=== PATIENT | female | born 1985 | race Caucasian/White ===

== ENCOUNTER 2019-05-06 11:53 | Emergency (ER) | payer OTHER, SELFPAY ==
[2019-05-06 12:22] VITALS: BP 142/91; PULSE 104; RESP 20; TEMP 36.8; O2SAT 100
--- NOTE | 2019-05-06 12:22 | ED.URI ---
HPI - URI/Sore Throat General Chief Complaint: Upper Respiratory Infection Stated Complaint: Cold/Flu symptoms Time Seen by Provider: 05/06/19 12:26 Source: patient and RN notes reviewed Mode of arrival: ambulatory Limitations: no limitations History of Present Illness HPI Narrative: 33 old female presents with 3-day history of body aches, chills, fever, cough, rhinorrhea, chest congestion. Reports her sister has influenza. MD elicited complaint: cough Related Data Home Medications Medication Instructions Recorded Confirmed No Home Medications 05/06/19 05/06/19 Allergies Allergy/AdvReac Type Severity Reaction Status Date / Time Penicillins Allergy Mild Hives / Verified 05/06/19 12:29 Red Face Review of Systems Review of Systems: Narrative: CONSTITUTIONAL: Reports malaise, chills, sweats, or fever. EYES: Denies visual changes, redness, or discharge. ENT: Reports rhinorrhea, congestion,. Denies sinus pain, otalgia and sore throat. CARDIOVASCULAR: Denies chest pain, palpitations, or edema. RESPIRATORY: Reports cough, chest congestion. Denies dyspnea. GASTROINTESTINAL: Denies abdominal pain, nausea, vomiting, diarrhea SKIN: Denies rash or itching. MUSCULOSKELETAL: Reports myalgia. NEUROLOGIC: Denies headache. All systems reviewed & are unremarkable except as noted in HPI and below PMFSH Comments At time of signature, agree with nursing past medical, surgical, social and family history. There is no relevant family history pertinent to the presenting complaint Exam Narrative: Exam Narrative: GENERAL: Well-appearing, well-nourished, and in no acute distress. HEAD: Normocephalic EYES: PERRLA, conjunctivae clear ENT: Nares clear, turbinates erythematous, clear discharge. Mucous membranes moist. TM pearly petersen with dull light reflex bilaterally; no tragal tenderness. Oropharynx not erythematous without lesions. Tonsils not enlarged and without exudate, no drooling, no hoarseness, no trismus, uvula midline. NECK: Supple. No lymphadenopathy CHEST: Clear to auscultation, breath sounds equal. No wheezing, rhonchi, rales, or stridor. No respiratory distress, speaks in full sentences. Cough noted HEART: Regular rate and rhythm. No murmur heard. SKIN: Warm, dry, no rash. NEURO: Alert and oriented x3. PSYCH: Normal mood and affect Course Course Emergency Course: Patient is aware of diagnosis, understands and agrees to treatment plan. Anticipatory guidance given. Patient agrees to follow-up as directed and is aware of reasons to seek care at the emergency department. Portions of this record may have been created with voice recognition software Vital Signs Vital signs: Reviewed. MDM - URI/Sore Throat MDM Narrative Medical decision making narrative: Differential diagnosis considered: Strep pharyngitis, allergic rhinitis, upper respiratory tract infection, sinusitis, rhinosinusitis, nasopharyngitis. viral pharyngitis, otitis media, otitis externa, pneumonia, bronchitis, viral cough syndrome, viral syndrome, and influenza. Exam findings show no acute concerns or changes; patient is non-toxic appearing and is in no distress. Patient is appropriate for outpatient treatment and follow-up. Lab Data Attestation: I reviewed the patient's lab results. Critical Care Time Critical Care Time Critical Care Time: No Discharge Plan Discharge Clinical Impression: Influenza B Patient Disposition: Home, Self-Care Condition: Stable Instructions: Influenza (ED) Additional Instructions: -Your symptoms are caused by a virus, and antibiotic does not cure viral illness. -Take strict precautions to prevent the spread of your virus. Be diligent about covering your cough (even when you are alone) and washing your hands frequently. -Alternate Tylenol and Motrin for pain and fever relief (per package directions) -Some Cough medicines may make you drowsy, do not take it if you have to make important decisions, drive, or work. -Drink ple
== END 2019-05-06 12:42 | disposition home or self-care (01) ==
PROVIDERS: Emergency Provider Nurse Practitioner
DX: J10.1 Influenza due to other identified influenza virus with other respiratory manifestations (principal)
CPT/HCPCS: 87804; 99203; G0463

== ENCOUNTER 2019-12-18 17:07 | Emergency (ER) | payer OTHER, SELFPAY ==
[2019-12-18 17:17] VITALS: BP 139/103; PULSE 112; RESP 14; TEMP 36.8; O2SAT 100
--- NOTE | 2019-12-18 18:30 | ED.FEMALEGU ---
HPI - Female Genitourinary General Chief complaint: Urogenital-Female Stated complaint: UTI Time Seen by Provider: 12/18/19 17:42 Source: patient and RN notes reviewed Mode of arrival: ambulatory Limitations: no limitations History of Present Illness HPI Narrative: 34 year old female who presents to [facility] care with complaints of irritation to perineal area with bulging to area near urethra. Patient states that she just got over vaginal infection and she then developed yeast infection. Patient states that she has pressure and discomfort when she urinates for the past 2-3 days. Patient denies any CVA tenderness or any acute suprapubic or pelvic discomfort. Patient states that she has been using Monistat ointment for perineal area for itching irritation..Patient states that she has sore area left vaginal region that she thinks she may of scratched. MD elicited complaint: dysuria, vaginal discharge and other (irritation to perineal area near urethra) Pertinent past history: recurrent UTIs and other (Vaginal infections and yeast infections) Onset (ago): day(s) Location of symptoms: external genitalia, perineum and urethra Severity: moderate Severity scale (1-10): 3 Quality of pain: burning and aching Consistency: constant Vaginal discharge: none, white and other (itchy) Vaginal bleeding: none Urinary symptoms: Dysuria and Frequency Exacerbating factors: urination Relieving factors: medication Associated symptoms: denies other symptoms Treatment prior to arrival: OTC vaginal cream Sexual activity: Yes Patient : No Date of Last Menstrual Period: 11/22/19 Related Data Home Medications Medication Instructions Recorded Confirmed dextroamphetamine-amphetamine 10 mg PO DAILY 12/18/19 12/18/19 Allergies Allergy/AdvReac Type Severity Reaction Status Date / Time Penicillins Allergy Mild Hives / Verified 12/19/19 16:15 Red Face Review of Systems Review of Systems: Narrative: CONSTITUTIONAL: Denies fever, chills, or sweats. EYES: Denies visual changes, redness, or discharge. ENT: Denies rhinorrhea, congestion, sore throat, or otalgia. CARDIOVASCULAR: Denies chest pain, palpitations, or edema. RESPIRATORY: Denies cough or dyspnea. GASTROINTESTINAL: Denies abdominal pain, nausea, vomiting, or diarrhea. GENITOURINARY:Positive for dysuria no visible hematuria.report bulging area in left vaginal area near urethra, yeast infection symptoms SKIN: Denies rash or itching. MUSCULOSKELETAL: Denies back pain, joint pain, or myalgia. NEUROLOGIC: Denies headache, numbness, or weakness. PSYCHIATRIC: Denies anxiety or depression.ADHD All systems reviewed & are unremarkable except as noted in HPI and below PMFSH Past Medical History Medical History (Updated 12/19/19 @ 20:14 by Julianna Lagunas NP) ADHD History of vaginal infection UTI (urinary tract infection) Vaginal yeast infection Surgical History Surgical History (Updated 12/19/19 @ 20:01 by Julianna Lagunas NP) No pertinent past surgical history Family History Family History Father Hypertension Asthma Diabetes mellitus Depression Grandparent Asthma Diabetes mellitus Hypertension Carcinoma of colon Bladder cancer Heart failure Brain cancer Lung cancer Sibling Asthma Social History Social History Smoking packs per day: 0.25 Smoking cigarettes per day: 5.0 Years smoked: 7 Smoking pack-years: 1.75 Smoking status: Current every day smoker Alcohol intake: current Drinks per week: 10 Substance use: never Gender identity (if verbalized by the patient): Female Comments At time of signature, agree with nursing past medical, surgical, social and family history. There is no relevant family history pertinent to the presenting complaint Exam Narrative: Exam Narrative: GENERAL: Well-appearing, well-nourished, and in no a
[2019-12-18 18:43] VITALS: BP 146/98
== END 2019-12-18 18:45 | disposition home or self-care (01) ==
PROVIDERS: Emergency Provider Registered Nurse; PCP Family Medicine
DX: N90.89 Other specified noninflammatory disorders of vulva and perineum (principal); N39.0 Urinary tract infection, site not specified; F17.210 Nicotine dependence, cigarettes, uncomplicated; F90.9 Attention-deficit hyperactivity disorder, unspecified type
CPT/HCPCS: 81003; 87077; 87086; 87088; 99213; G0463

== ENCOUNTER 2019-12-19 16:03 | Emergency (ER) | payer OTHER, SELFPAY ==
[2019-12-19 16:06] VITALS: BP 149/100; PULSE 117; RESP 100; TEMP 36.6; O2SAT 100
--- NOTE | 2019-12-19 16:42 | ED.GENADULT ---
HPI - General Adult General Chief complaint: Wound/Laceration Stated complaint: LESION Time Seen by Provider: 12/19/19 16:08 Source: patient Mode of arrival: ambulatory Limitations: no limitations History of Present Illness HPI narrative: Patient a 34-year-old female who presents to emergency department for evaluation of wound in the vagina that has been present for the last couple of days was seen yesterday diagnosed with urinary tract infection and yeast infection placed on ciprofloxacin notes that the wound is still present patient is unsure as to maybe she may have caused the wound with itching or scratching. Patient has not followed up with gynecology but presents per request of gynecology for further evaluation of the wound Related Data Home Medications Medication Instructions Recorded Confirmed dextroamphetamine-amphetamine 10 mg PO DAILY 12/18/19 12/18/19 Allergies Allergy/AdvReac Type Severity Reaction Status Date / Time Penicillins Allergy Mild Hives / Verified 12/19/19 16:15 Red Face Review of Systems Review of Systems: All systems reviewed & are unremarkable except as noted in HPI and below PMFSH Family History Family History Father Hypertension Asthma Diabetes mellitus Depression Grandparent Asthma Diabetes mellitus Hypertension Carcinoma of colon Bladder cancer Heart failure Brain cancer Lung cancer Sibling Asthma Social History Social History Smoking packs per day: 0.25 Smoking cigarettes per day: 5.0 Years smoked: 7 Smoking pack-years: 1.75 Smoking status: Current every day smoker Alcohol intake: current Drinks per week: 10 Substance use: never Gender identity (if verbalized by the patient): Female Exam Narrative: Exam Narrative: GENERAL: Well-appearing, well-nourished, and in no acute distress. HEAD: Normocephalic, atraumatic. EYES: PERRLA and EOMI. ENT: Nares clear, no rhinorrhea or epistaxis. Mucous membranes moist. FEMALE GENITOURINARY: Patient with laceration of the mucosa of the vagina to the left of the clitoris that is superficial no erythema measures 1-1/2 cm in length by less than 1/2 cm in width no fluctuance or purulence EXTREMITIES: Normal range of motion. No edema. SKIN: Warm, dry, no rash. NEURO: No focal deficits. Alert and oriented x3. PSYCH: Normal mood and affect. Course Course Emergency Course: Patient with labial fissure will be sent back to gynecology for further evaluation will be switched to Keflex for better coverage of skin and urinary tract infection provided with reasons to return Vital Signs Vital signs: Vital Signs Temperature 97.9 F 12/19/19 16:06 Pulse Rate 117 H 12/19/19 16:06 Respiratory Rate 100 H 12/19/19 16:06 Blood Pressure 149/100 H 12/19/19 16:06 Pulse Oximetry 100 12/19/19 16:06 Temperature 97.9 F 12/19/19 16:06 Pulse Rate 117 H 12/19/19 16:06 Respiratory Rate 100 H 12/19/19 16:06 Blood Pressure 149/100 H 12/19/19 16:06 Pulse Oximetry 100 12/19/19 16:06 Medical Decision Making MDM Narrative Medical decision making narrative: Patient with labial wound felt appropriate for outpatient reevaluation by her nurse midwife Vital Signs Vital Signs: Vital Signs Temperature 97.9 F 12/19/19 16:06 Pulse Rate 117 H 12/19/19 16:06 Respiratory Rate 100 H 12/19/19 16:06 Blood Pressure 149/100 H 12/19/19 16:06 Pulse Oximetry 100 12/19/19 16:06 Temperature 97.9 F 12/19/19 16:06 Pulse Rate 117 H 12/19/19 16:06 Respiratory Rate 100 H 12/19/19 16:06 Blood Pressure 149/100 H 12/19/19 16:06 Pulse Oximetry 100 12/19/19 16:06 Discharge Plan Discharge Clinical Impression: Fissure of genital labia Patient Disposition: Home, Self-Care Condition: Stable Instructions: Antibiotic Form, Acute Wounds (ED) Additional Instructions: Foll
== END 2019-12-19 17:21 | disposition home or self-care (01) ==
PROVIDERS: Emergency Provider Emergency Medicine; PCP Family Medicine
DX: N90.89 Other specified noninflammatory disorders of vulva and perineum (principal); N39.0 Urinary tract infection, site not specified; F17.210 Nicotine dependence, cigarettes, uncomplicated; B37.9 Candidiasis, unspecified
CPT/HCPCS: 99283

== ENCOUNTER 2021-07-19 19:39 | Emergency (ER) | payer BC, SELFPAY ==
--- NOTE | ~2021-07-19 | XR_ITS ---
EXAM: XR finger 2nd LT min 2V DATE: 07/19/2021 20:37 HISTORY: swelling to LEFT 2nd finger. no injury . COMPARISON: None available. FINDINGS: Normal mineralization. No fracture or dislocation. No lytic or blastic lesion. Joint space s and physes are maintained. No erosion or periosteal change. Soft tissues within normal limits. IMPRESSION: No acute osseous abnormality detected in the left second finger. Reviewed, dictated and finalized at location K.
--- NOTE | ~2021-07-19 | XR_ITS ---
EXAM: XR toe 3rd LT min 2V DATE: 07/19/2021 20:38 HISTORY: LT 3RD TOE SWELLING AND NUMBNESS NO INJURY . COMPARISON: None available. FINDINGS: Normal mineralization. No fracture or dislocation. No lytic or blastic lesion. Joint space s are maintained. No erosion or periosteal change. Soft tissues within normal limits. IMPRESSION: No acute osseous abnormality detected in the left third toe. Reviewed, dictated and finalized at location K.
--- NOTE | 2021-07-19 19:48 | ED.EXTPRO ---
HPI - Extremity Problem General Stated complaint: left side finger and toe swollen Time Seen by Provider: 07/19/21 20:15 Source: patient and RN notes reviewed Mode of arrival: ambulatory Limitations: no limitations History of Present Illness HPI Narrative: 35-year-old female presents with concern for swelling and tenderness to the second digit of the left hand and swelling to the third digit of the left foot. She reports symptoms started 3 weeks ago. She reports symptoms started the same time, she denies any injury to either digit. She reports she has been using ice and ibuprofen without relief. She denies general malaise, fever, bodies, chills, sweats. MD Complaint: extremity swelling Related Data Home Medications Medication Instructions Recorded Confirmed dextroamphetamine-amphetamine 10 See Rx Instructions .Route .COMPLEX 07/19/21 07/19/21 mg tablet valacyclovir 500 mg tablet 1 tablet PO DAILY 07/19/21 07/19/21 Allergies Allergy/AdvReac Type Severity Reaction Status Date / Time Penicillins Allergy Mild Hives / Verified 07/19/21 20:08 Red Face Review of Systems Review of Systems: CONSTITUTIONAL: Denies malaise, chills, sweats, or fever. CARDIOVASCULAR: Denies chest pain, palpitations, or edema. RESPIRATORY: Denies cough or dyspnea. SKIN: Denies rash or itching, bruising, redness MUSCULOSKELETAL: Reports swelling, tenderness to the second edge of left hand and third digit of left foot NEUROLOGIC: Denies numbness, weakness All systems reviewed & are unremarkable except as noted in HPI and below PMFSH Past Medical History Medical History (Updated 07/19/21 @ 20:41 by Olivia Buenrostro NP) ADHD History of vaginal infection UTI (urinary tract infection) Vaginal yeast infection Surgical History Surgical History (Updated 12/19/19 @ 20:01 by Julianna Lagunas NP) No pertinent past surgical history Family History Family History Father Hypertension Asthma Diabetes mellitus Depression Grandparent Asthma Diabetes mellitus Hypertension Carcinoma of colon Bladder cancer Heart failure Brain cancer Lung cancer Sibling Asthma Social History Social History Smoking packs per day: 0.25 Smoking cigarettes per day: 5.0 Years smoked: 7 Smoking pack-years: 1.75 Smoking status: Current every day smoker Alcohol intake: current Drinks per week: 10 Substance use: never Gender identity (if verbalized by the patient): Female Comments At time of signature, agree with nursing past medical, surgical, social and family history. There is no relevant family history pertinent to the presenting complaint Exam Narrative: GENERAL: Well-appearing, well-nourished, and in no acute distress. HEAD: Normocephalic, atraumatic. EYES: PERRLA, sclera clear, and EOMI. ENT: Nares clear. Mucous membranes moist. NECK: Supple. CHEST: No respiratory distress. Speaks in full sentences. HEART: Regular rate and rhythm.Normal peripheral pulses. Bilateral feet with good dark in color when dependent, when feet are elevated circulation improves, skin is pink in color. Capillary refill is 3 seconds or less in both dependent and raised positions EXTREMITIES: Left upper and lower extremities have grossly normal range of motion, grossly normal strength and sensation. Third digit of left foot is edematous, slightly tender without erythema, induration, warmth. Second digit of left hand is very mildly edematous at the MIP joint with very mild but no induration, erythema, warmth SKIN: Warm, dry, no visible rash. No lacerations or abrasions noted NEURO: Alert and oriented x3. PSYCH: Normal mood and affect Course Course Emergency Course: Discussed possible chronic causes of patient's symptoms, advised that she follow-up with primary care provider for comprehensive evaluation. Patient is aware of diagn
[2021-07-19 19:54] VITALS: BP 136/94; PULSE 96; RESP 18; TEMP 37.1; O2SAT 100
== END 2021-07-19 20:50 | disposition home or self-care (01) ==
PROVIDERS: Emergency Provider Nurse Practitioner
DX: M25.842 Other specified joint disorders, left hand (principal); M25.872 Other specified joint disorders, left ankle and foot; F17.210 Nicotine dependence, cigarettes, uncomplicated; F90.9 Attention-deficit hyperactivity disorder, unspecified type
CPT/HCPCS: 73140; 73660; 99214; G0463

== ENCOUNTER 2021-08-03 08:04 | Outpatient (CLI) | payer BC, SELFPAY ==
[2021-08-03 19:41] LABS: Cholesterol 160 mg/dL (0-200); HDL Direct 65 mg/dL; Triglycerides 59 mg/dL (<150)
[2021-08-03 19:53] LABS: LDL Cholesterol Direct 75 mg/dL
[2021-08-03 20:32] LABS: Hemoglobin A1C 5.1 % (<5.7)
[2021-08-07 12:32] LABS: ANA Cascade Screen Negative (Negative)
== END 2021-08-03 08:05 | disposition home or self-care (01) ==
PROVIDERS: PCP Family Medicine; Visit Provider Family Medicine
DX: G47.10 Hypersomnia, unspecified (principal); M25.40 Effusion, unspecified joint; Z00.00 Encounter for general adult medical examination without abnormal findings; E66.9 Obesity, unspecified
CPT/HCPCS: 36415; 80061; 83036; 84443; 86038

== ENCOUNTER 2021-10-17 09:28 | Outpatient (CLI) | payer BC, SELFPAY ==
--- NOTE | ~2021-10-17 | MR_ITS ---
EXAMINATION: MR hand LT wo con DATE: 10/17/2021 10:10 INDICATION: Pain and swelling at the left second digit TECHNIQUE: Magnetic resonance imaging (MRI) of the left hand was performed without intravenous contra st. Sequences included axial, sagittal and coronal T1-weighted FSE and T2-weighted FS FSE and sagitta l and coronal fluid sensitive FSE STIR. COMPARISON: Left second finger radiographs dated 07/19/2021 FINDINGS: Bone alignment is normal. Normal marrow signal throughout with no fracture or pathologic marrow repla cing process. Joint spaces appear relatively preserved. No erosions. Nonspecific small joint effusion at the second proximal interphalangeal joint. More prominent synovitis extending throughout the flex or tendon sheath of the second digit beginning proximally at the level of the neck of the second meta tarsal and extending distally to the level of the neck of the middle phalanx. The flexor and extensor tendons are normal. The flexor lakshmi system remains normal. Collateral ligament complex at the meta carpophalangeal and interphalangeal joints are normal. IMPRESSION: 1. Extensive tenosynovitis along the flexor tendon sheath to the left second digit. No tendinopathy o r tendon tear. Reviewed, dictated and finalized at location A. IMPRESSION: 1. Extensive tenosynovitis along the flexor tendon sheath to the left second di git. No tendinopathy or tendon tear.
== END 2021-10-17 09:29 ==
PROVIDERS: PCP Family Medicine; Visit Provider Family Medicine
DX: M79.645 Pain in left finger(s) (principal); M79.89 Other specified soft tissue disorders
CPT/HCPCS: 73218

== ENCOUNTER 2022-05-24 08:17 | Outpatient (CLI) | payer BC, SELFPAY ==
--- NOTE | ~2022-05-24 | XR_ITS ---
Right Hand Technique: PA, oblique, and lateral views were obtained. Clinical History: Pain Findings: No acute fracture or dislocation is seen. Osseous alignment is anatomic. Joint spaces are p reserved. Soft tissues are unremarkable. Impression: Unremarkable right hand. Reviewed, dictated and finalized at location M. Impression: Unremarkable right hand.
== END 2022-05-24 08:18 | disposition home or self-care (01) ==
LOC: ANHBWCIMG 08:18
PROVIDERS: PCP Family Medicine; Visit Provider Family Medicine
DX: M25.40 Effusion, unspecified joint (principal)
CPT/HCPCS: 73130

== ENCOUNTER 2022-06-27 11:44 | Outpatient (CLI) | payer BC, SELFPAY ==
[2022-06-27 19:29] LABS: Basophils Percent Auto 0.5 % (0.2-1.2); Eosinophils Percent Auto 0.5 % (0-4.4); Hematocrit 44.1 % (37.0-47.0); Hemoglobin 14.7 g/dL (12.0-15.0); Immature Granulocyte Absolute 0.03 K/mm3 (0.00-0.031); Immature Granulocyte Percent A 0.5 % (0-0.5); Lymphocytes Absolute Auto 1.29 K/mm3 (0.9-3.2); Lymphocytes Percent Auto 19.7 % (18.3-44.2); Mean Corpuscular HGB Conc 33.3 g/dl (32-36); Mean Corpuscular Hemoglobin 31.6 pg (26-34); Mean Corpuscular Volume 94.8 fl (80-100); Mean Platelet Volume 11.6 fl (7.4-10.4); Monocytes Absolute Auto 0.4 K/mm3 (0.1-0.6); Monocytes Percent Auto 6.3 % (2.6-8.5); Neutrophils Absolute Auto 4.8 K/mm3 (1.3-6.7); Neutrophils Percent Auto 72.5 % (45.5-73.1); Platelet Count Result 223 k/mm3 (150-375); Red Blood Count 4.65 M/mm3 (4.2-5.4); Red Cell Distribution Width 13.3 % (11.5-14.5); White Blood Count 6.6 K/mm3 (4.5-10.0)
[2022-06-27 19:33] LABS: CRP < 0.5 mg/dL (<1.0)
[2022-06-27 19:41] LABS: Rheumatoid Factor < 12.0 IU/ML (<12)
[2022-06-27 20:38] LABS: Erythrocyte Sedimentation Rate 11 mm/hr (0-20)
== END 2022-06-27 11:45 | disposition home or self-care (01) ==
LOC: ANHBWCLAB 11:45
PROVIDERS: PCP Family Medicine; Visit Provider Nurse Practitioner
DX: M25.40 Effusion, unspecified joint (principal); M79.645 Pain in left finger(s)
CPT/HCPCS: 36415; 85025; 85652; 86140; 86430

== ENCOUNTER 2022-12-14 09:25 | Outpatient (CLI) | payer BC, SELFPAY ==
[2022-12-14 19:01] LABS: Iron 98 ug/dL (37-170)
[2022-12-14 19:10] LABS: Hematocrit 46.8 % (37.0-47.0); Hemoglobin 14.9 g/dL (12.0-15.0); Mean Corpuscular HGB Conc 31.8 g/dl (32-36); Mean Corpuscular Hemoglobin 30.8 pg (26-34); Mean Corpuscular Volume 96.9 fl (80-100); Mean Platelet Volume 11.8 fl (7.4-10.4); Platelet Count Result 229 k/mm3 (150-375); Red Blood Count 4.83 M/mm3 (4.2-5.4); Red Cell Distribution Width 13.2 % (11.5-14.5); White Blood Count 8.4 K/mm3 (4.5-10.0)
[2022-12-14 19:17] LABS: Percent Iron Saturation 31 % (20-50)
[2022-12-14 19:34] LABS: Alanine Aminotransferase 15 U/L (6-35); Albumin Level 4.5 g/dL (3.5-5.1); Alkaline Phosphatase 53 U/L (38-126); Anion Gap 6 mmol/L (8-16); Aspartate Amino Transferase 65 U/L (14-36); Bilirubin,Total 0.5 mg/dL (0.2-1.3); Blood Urea Nitrogen 12 mg/dL (7-17); Calcium 9.5 mg/dL (8.4-10.2); Carbon Dioxide 28 mmol/L (22-30); Chloride 103 mmol/L (98-107); Estimated Glomerular Filt Rate > 60; Glucose 72 mg/dL (65-110); Potassium 3.7 mmol/L (3.4-5.0); Sodium 137 mmol/L (137-145)
[2022-12-14 20:41] LABS: Folic Acid 12.5 ng/mL (2.76->20)
== END 2022-12-14 09:26 | disposition home or self-care (01) ==
PROVIDERS: PCP Nurse Practitioner Adult Health; Visit Provider Nurse Practitioner Adult Health
DX: R53.83 Other fatigue (principal)
CPT/HCPCS: 36415; 80053; 82607; 82728; 82746; 83540; 83550; 84443; 85027

== ENCOUNTER 2022-12-20 14:19 | Outpatient (CLI) | payer BC, SELFPAY ==
--- NOTE | 2022-12-25 15:52 | WPDHOLTEREM ---
Holter/Event Monitor Holter/Event Monitor Date of procedure: 12/20/22 Holter/Event Procedure: 48 Hr Holter Monitor Indications: Palpitations Conclusion: 1. 48 hour holter monitor on 12/20/22. 2. Underlying rhythm is sinus rhythm. HR range 45-160 bpm; average HR 96 bpm. HR at 45 bpm was at 04:19. HR at 160 bpm was at 16:08. 3. There are 81 premature supraventricular complexes and 7 supraventricular couplets. No supraventricular tachycardia. 4. There are 11 premature ventricular complexes. No ventricular tachycardia. 5. No sinoatrial or atrioventricular blocks. No significant pauses greater than 2 seconds. 6. No symptoms available for correlation.
== END 2022-12-20 14:20 | disposition home or self-care (01) ==
PROVIDERS: PCP Nurse Practitioner Adult Health; Visit Provider Nurse Practitioner Adult Health
DX: R00.2 Palpitations (principal)
CPT/HCPCS: 93225; 93226

== ENCOUNTER 2024-09-09 11:17 | Outpatient (CLI) | payer OTHER, SELFPAY ==
--- NOTE | ~2024-09-09 | MMUS_ITS ---
EXAMINATION: MM diagnostic kelley BI w ashtyn, US breast BI complete HISTORY: Palpable right breast abnormality TECHNIQUE: Additional 3-D tomosynthesis images of the breasts were performed and synthetic 2-D images were generated. CAD analysis was submitted and interpreted. High resolution bilateral complete breas t ultrasound was performed. COMPARISON: None BREAST PARENCHYMAL COMPOSITION: Dense: The breasts are heterogeneously dense, which may obscure small masses FINDINGS: MAMMOGRAPHIC FINDINGS: There are no suspicious masses, calcifications or architectural distortion in either breast to sugges t malignancy. ULTRASOUND: Complete US of all 4 quadrants of the breast/s and retroareolar region was reviewed. Normal heterogen eous echotexture without focal solid or cystic mass. IMPRESSION: 1. No evidence for malignancy in either breast. 2. Routine yearly screening mammogram and regular clinical breast examination are recommended. BI-RADS Category 1: Negative Reviewed, dictated and finalized at location B. IMPRESSION: 1. No evidence for malignancy in either breast. 2. Routine yearly screening mammogram and regular clinical breast examination a re recommended. BI-RADS Category 1: Negative
--- OUTSIDE RECORDS SUMMARY | 2024-09-09 11:35 | XMS_ITS | Data Portability ---
Author Organization [facility] Address [address] [place] [address] Care Team Providers Care Bread Icer Name Role Phone DEMETRI BOWSER Primary Care Provider Assessment Encounter Date Assessment Date Assessment LastModified by Organization Details LastModified Time 04/24/2023 04/24/2023 Annual gynecological exam performed. Patient will come back in a year unless there are new symptoms. Not available 04/24/2023 09:51:04 04/26/2023 04/26/2023 Annual gynecological exam performed. Patient will come back in a year unless there are new symptoms. Not available 04/26/2023 09:50:34 10/23/2023 10/23/2023 Patient not seen by provider due to provider out of office. [email or web address] Not available 10/23/2023 23:11:31 08/15/2024 08/15/2024 Annual gynecological exam performed. Patient will come back in a year unless there are new symptoms. [email or web address] Not available 08/15/2024 09:29:50 Plan of Treatment Reminders Order Date Submit Date Provider Last Modified By Organization Details Last Modified Time Details Appointments None recorded. Lab None recorded. Referral None recorded. Procedures None recorded. Surgeries None recorded. Imaging MAMMO, diagnostic , digital, bilateral 2024 025 [facility], [address], [place], [address], 12:23:05 Medication Orders estradiol 2 mg tablet 2024 025 [facility] #[id number], [address] [place] [address], [id number], 5 10:08:35 Mirena 21 mcg/24 hr (up to 8 years) 52 mg intrauteri ne device 2023 024 [email or web address] Not available 12:29:19 Bactrim DS 800 mg-160 mg tablet 2023 [email or web address] [facility] #[id number], [address] [place] [address], [id number], 4 11:15:17 mupirocin 2 % topical ointment 2023 024 [facility] #[id number], [address], [id number], 4 09:14:07 Patient TargetsNo targets recorded. Patient InstructionsNo instructions recorded. Reason for Referral None Reported. Results Created Date Observation Date Name Description Value Unit Range Abnormal Flag Note LastModifiedBy Organization Detail LastModifiedTime 04/24/19 24 04/24/2023 CULTU RE: AEROB IC/AN AEROB IC culture: aerobic/anae robic CANCEL LED Reord ered Not Available [facility] (Lab) [address] [facility], [place], [address], 04/25/2023 06:58:31 04/24/19 24 04/24/2023 CULTU RE: GENIT AL result report SEE RESULT S BELOW abnormal Test: Cultu re: Genit al Speci men Sourc e: Vagin a Speci men Type: Swab Speci men Date: 2023 3:40 PM Resul t Date: 2:03 PM Resul t Statu s: Final resul t Abnor mal: Yes Resul ting Lab: [facility] [address] [facility] [address] Tel: CULTU RE ----- ----- ----- --- No Neiss eria gonor rhoea e isola melody Heavy Growt h Maureen l Vagin al Anca Heavy Growt h Staph yloco ccus aureu s (Abno rmal) Heavy Growt h Strep tococ cus agala ctiae (Grou p B) (Abno al) Strep tococ cus agala ctiae (Beta strep Group B Strep ) remai ns unive rsall y susce ptibl e to penic illin , cefaz montserrat and vanco mycin . If clind amyci n is being consi dered for intra partu m proph ylaxi s, pleas e conta ct the lab withi n 5 days. STAIN ----- ----- ----- --- Alter ed vagin al anca , indet ermin ate for bacte rial vagin osis SUSCE PTIBI LITY ----- ----- ----- --- Staph yloco ccus aureu s METHO D MAYDA ----- ----- ----- ----- ----- ---- ----- ----- ----- ----- ----- CLIND AMYCI N <=0.2 5 ug/mL Susce ptibl e ERYTH ROMYC IN <=0.2 5 ug/mL Susce ptibl e GENTA MICIN <=4 ug/mL Susce ptibl e LEVOF LOXAC IN <=1 ug/mL Susce ptibl e OXACI LLIN <=0.2 5 ug/mL Susce ptibl e TETRA CYCLI NE <=4 ug/mL Susce ptibl e TRIME THOPR IM/GARNER LFAME THOXA ZOLE <=0.5 ug/mL Susce ptibl e VANCO MYCIN 1 ug/mL Susce ptibl e Not Available [facility] (Lab) [address] [facility], [place], [address], 04/30/2023 15:06:15 04/24/19 24 04/24/2023 CULTU RE: HERPE S SIMPL EX VIRUS (HSV) , REFLE X TYPIN G source LESION SCRAPI NGS Not Available [facility] (Lab) [address] [facility], [place], [address], 04/30/2023 15:06:16 04/24/19 24 04/24/2023 CULTU RE: HERPE S SIMPL EX VIRUS (HSV) , REFLE X TYPIN G hsv culture, body fluid ISOLAT ED abnormal Not Available [facility] (Lab) [address] [facility], [place], [address], 04/30/2023 15:06:16 04/24/19 24 04/24/2023 CULTU RE: HERPE S SIMPL EX VIRUS (HSV) , REFLE X TYPIN G hsv 2 NOT ISOLAT ED Not Available [facility] (Lab) [address] [facility], [place], [address], 04/30/2023 15:06:16 04/24/19 24 04/24/2023 CULTU RE: HERPE S SIMPL EX VIRUS (HSV) , REFLE X TYPIN G hsv 1 ISOLAT ED abnormal Perfo rming Organ izati on Infor sergey n: Site ID: CB Name: [facility] abdirahman Lorenzo Addre ss: [address] [place] [address] Direc tor: Clarita Mahajan s Not Available [facility] (Lab) [address] [facility], [place], [address], 04/30/2023 15:06:16 04/26/19 24 04/26/2023 IMAGE GUIDE D PAP AND HPV REGAR DLESS image guided Pap, HPV regardless of Pap result SEE RESULT S BELOW CASE REPOR T: Cytol ogy Gynec ologi angel Repor t Case: [id number] Autho juhi g Provi julianne: Sondra Ford NP Colle cted: [id number] Order ing Locat ion: [place] [facility] Recei ophelia: 04/26 0630 First Scree n: Valorie Howard ret, CT Rescr een: Nancy colin, Michael ed, CT Speci men: Scree ad Pap - Image d, Cervi x STATE MENT OF ADEQU ACY: Satis facto ry for evalu ation Trans forma tion zone compo nent absen t The absen ce of an endoc ervic al compo nent was confi rmed by an addit ional yazmin ner. FINAL DIAGN OSIS: Negat alyssia for Intra epith elial Lesio n or Kayla akins (NIL) . Elect olga lidia boyd sasha d by Michael Handley ed, CT on 024 at 10:32 PM ----- ----- ----- ----- ----- ----- ----- ----- ----- ----- ----- ----- ----- ----- ----- ----- ----- ---- HPV RESUL TS: HPV mRNA E6/E7 : No HPV mRNA Detec melody NOTE: This high risk HPV mRNA assay detec ts fourt een high- risk HPV types (16, 18, 31, 33, 35, 39, 45, 51, 52, 56, 58, 59, 66, 68) witho ut diffe renti ation . COMME NT: This speci men was revie wed by a Cytot echno logis t and/o r Patho logis t (as indic ated in this repor t) after evalu ation using the Thinp rep Imagi ng Syste m. CLINI ANGEL INFOR MATIO N: Menst rual Statu s: LMP (if appli cable ): Clini angel Histo ry/Pr eviou s Pap: Type of Neopl scott (if appli cable ): Signi fican t Clini angel Findi ngs: Other Histo ry: Hormo pradeep (if appli cable ): PAP EDUCA TATY L NOTE: The Pap Test is a scree ad test with an inher ent false negat alyssia rate. Liqui d-bas ed sampl ing may decre ase, but will not elimi tayler, false negat alyssia resul ts. A negat alyssia resul t does not precl ude the prese nce and/o r devel opmen t of disea se, since the prese nce of abnor mal cells in the sampl e depen ds on the locat ion of the lesio n and sampl ing techn ique. Joya nued regul ar scree ad is the best metho d of cance r preve ntion . If repor melody cytol ogic findi ng do not corre late with physi angel and/o r histo rical findi ngs, furth er inves tigat ion is recom saadia d, as clini milka warra nted. Not Available [facility] (Lab) [address], [place], [address], 05/01/2023 23:35:49 10/22/19 24 10/22/2023 BHCG, QUANT ITATI VE B-HCG <0.2 mIU/m L This assay was perfo rmed using [employer] ratio n reage nts and test kits. Value s obtai sommer with other assay metho ds or kits canno t be used inter antoine eably . Refer ence Range s: Non-p regna nt, preme nopau mc women : 0.0-5 .3 mIU/m L Postm enopa usal women : 0.0-7 .0 mIU/m L Maureen l Pregn elise: Gesta taty l Age bHCG Conc. - mIU/m L 3 Weeks 5.8 - 71.7 4 Weeks 9.5 - 750 5 Weeks 217-7 138 6 Weeks 158 - 31,79 5 7 Weeks 3,697 - 162,5 63 8 Weeks 32,06 5 - 149,5 71 9 Weeks 63,80 3 - 151,4 10 10 Weeks 46,50 9 - 186,9 77 12 Weeks 27,83 2 - 210,6 12 14 Weeks 13,95 0 - 62,53 0 15 Weeks 12,03 9 - 70,97 1 16 Weeks 9,040 - 56,45 1 17 Weeks 8,175 - 55,86 8 18 Weeks 8,099 - 58,17 6 Not Available [facility] (Lab) [address], [place], [address], 10/23/2023 07:14:50 08/16/19 25 08/15/2024 WOMEN 'S HEALT H SWAB PLUS, JAMEL bacterial vaginosis (bv), tma Negati ve negati ve Not Available [facility] (Lab) [address] [place], [address], 08/19/2024 09:18:09 08/16/19 25 08/15/2024 WOMEN 'S HEALT H SWAB PLUS, JAMEL jose species, tma Positi ve negati ve abnormal Not Available [facility] (Lab) [address] [place], [address], 08/19/2024 09:18:09 08/16/19 25 08/15/2024 [facility]AMEL jose glabrata, tma Negati ve negati ve Not Available [facility] (Lab) [address] [place], [address], 08/19/2024 09:18:09 08/16/19 25 08/15/2024 [facility], JAMEL trichomonas vaginalis, tma Negati ve negati ve Not Available [facility] (Lab) [address] [place], [address], 08/19/2024 09:18:09 08/16/19 25 08/15/2024 [facility], JAMEL chlamydia trachomatis, PCR Negati ve negati ve Not Available [facility] (Lab) [address] [place], [address], 08/19/2024 09:18:09 08/16/19 25 08/15/2024 [facility], JAMEL neisseria gonorrhoeae, PCR Negati ve negati ve Bacte rial vagin osis detec ts the follo wing bacte nora assoc iated with bacte rial vagin osis (BV): Lacto bacil jennifer (L. gasse ri, L. crisp atus and L. jense beata), Gardn erell a vagin riri, and Atopo bium vagin ae. A singl e quali tativ e resul t is repor melody base on instr ument softw are to deter mine BV posit alyssia or negat alyssia statu s. The Leatha da speci es group tests for C. albic ans, C. tropi calis , C. parap mikie is, C. dubli niens is. Testi ng is perfo rmed using the Trans cript ion Media melody Ampli ficat ion metho d. Tests for Leatha da glabr sabino, Trich omona s vagin riri, Chlam ydia trach omati s, and Neiss eria gonor rhoea e are also inclu ded in this panel . Not Available [facility] (Lab) [address], [place], [address], 08/19/2024 09:18:09 Result Notes None recorded. Procedures Surgical History Date Name Laterality Status Provider Name and Address Organization Details Recorded Time 4 IUD Insertion completed RUSS HURTADO MD [address], [place], [address], [facility] 10/26/2023 11:58:25 4 Nexplanon Removal completed RUSS HURTADO MD [address], [place], [address], [facility] 10/26/2023 11:59:18 4 IUD Insertion completed Trinity Galdamez [facility] 10/23/2023 11:13:56 4 Date of Last Pap Smear completed Oneida Haines [facility] 04/26/2023 09:51:10 Imaging Results None recorded. Procedure Notes None recorded. Medical Equipment None Reported. Allergies Allergen ID Allergen Name Allergen Category Reaction Reaction Severity Criticality Documentation Date Start Date Code Code System Note Provider Name and Address Organization Details Recorded Time 84525 Penicilli n Not available rash Not available Not available 04/24/2023 66001 RxNorm Oneida [facility]aines [facility] 4 15:53:27 Medications Name Sig Start Date Stop Date Status Note LastModified by Organization Details LastModified Time Mirena 21 mcg/24 hr (up to 8 years) 52 mg intrauterin e device Take 1 device by intrauter ine route. 2023 active Not Available Not Available Not Avai lable clindamycin HCl 300 mg capsule TAKE 1 CAPSULE BY MOUTH EVERY 8 HOURS FOR 10 DAYS 04/29 completed Not Available Not Available Not Available azithromyci n 250 mg tablet FOLLOW PACKAGE DIRECTION S 08/15 completed Not Available Not Available Not Available fluconazole 150 mg tablet TAKE 1 TABLET BY MOUTH DIRECTED BY DOCTOR active Not Available Not Available No t Available valacyclovi r 1 gram tablet TAKE 1 TABLET BY MOUTH EVERY DAY FOR 5 DAYS 08/15 completed Not Available Not Available Not Available prednisone 20 mg tablet TAKE 2 TABLETS BY MOUTH DAILY 08/15 completed Not Available Not Available Not Available valacyclovi r 500 mg tablet TAKE 1 TABLET BY MOUTH DAILY active Not Available Not Available No t Available sulfamethox azole 800 mg-trimetho prim 160 mg tablet TAKE 1 TABLET BY MOUTH EVERY 12 HOURS FOR 7 DAYS 10/22 completed Not Available Not Available Not Available terbinafine HCl 250 mg tablet TAKE 1 TABLET BY MOUTH DAILY active Not Available Not Available No t Available dextroamphe tamine-amph etamine 20 mg tablet TAKE 1 TABLET BY MOUTH EVERY MORNING AND TAKE 1/2 TABLET BY MOUTH IN THE AFTERNOON active Not Available Not Available No t Available estradiol 2 mg tablet TAKE 1 TABLET BY MOUTH EVERY DAY FOR 14 DAYS active Not Available Not Available No t Available mupirocin 2 % topical ointment APPLY A SMALL AMOUNT TO THE AFFECTED AREA BY TOPICAL ROUTE 3 TIMES PER DAY FOR 7 DAYS 11/25 completed Not Available Not Available Not Available Adderall (20mg) 10/22 completed Not Available Not Available Not Available Valtrex 04/29 completed Not Available Not Available Not Available cholecalcif vishal (vitamin D3) 1,250 mcg (50,000 unit) capsule TAKE 1 CAPSULE BY MOUTH ONCE A WEEK 08/15 completed Not Available Not Available Not Available Vitals Date Recorded Body weight Body mass index (BMI) Body height Systolic And Diastolic Provider Name and Address Organization Details Last Updated DateTime 04/24/2023 39465.47 g 29.5 kg/m2 175.26 cm 156/103 mm[Hg] Oneida [facility] 04/24/2023 15:53:18 Date Recorded Body height Body mass index (BMI) Body weight Systolic And Diastolic Provider Name and Address Organization Details Last Updated DateTime 04/26/2023 175.26 cm 29.7 kg/m2 67763.07 g 157/95 mm[Hg] [facility] 04/26/2023 16:08:13 Date Recorded Body height Body mass index (BMI) Body weight Systolic And Diastolic Provider Name and Address Organization Details Last Updated DateTime 08/15/2024 175.26 cm 29.8 kg/m2 88696.66 g 127/94 mm[Hg] Faiza [facility] 08/15/2024 09:38:28 Date Recorded Body height Body mass index (BMI) Body weight Systolic And Diastolic Provider Name and Address Organization Details Last Updated DateTime 10/23/2023 175.26 cm 30.7 kg/m2 21459.49 g 156/118 mm[Hg] [facility] 10/23/2023 11:14:31 Date Recorded Body height Body mass index (BMI) Body weight Systolic And Diastolic Provider Name and Address Organization Details Last Updated DateTime 10/26/2023 175.26 cm 30.5 kg/m2 53490.18 g 138/85 mm[Hg] [facility] 10/26/2023 11:27:52 Social History Question Answer Notes LastModified by Organizat ion Details LastModified Time Tobacco Smoking Status Never Smoker [facility] 04/24/2023 15:57:23 Do You Have An Advance Directive? No [email or web address] Information n ot available 08/15/2024 How Many Years Have You Consumed Alcohol? 25 Information not available 04/24/2023 Are You Blind Or Do You Have Difficulty Seeing? No Information n ot available 04/24/2023 What Is Your Level Of Caffeine Consumption? Moderate Information not available 04/24/2023 How Much Tobacco Do You Chew? None Information not available 04/24/2023 In The 14 Days Before Symptom Onset, Have You Had Close Contact With A Laboratory-confirm ed COVID-19 While That Case Was Ill? No Information n ot available 04/24/2023 In The 14 Days Before Symptom Onset, Have You Had Close Contact With A Person Who Is Under Investigation For COVID-19 While That Person Was Ill? No Information not available 04/24/2023 Have You Been To An Area Known To Be High Risk For COVID-19? No Information not available 04/24/2023 Are You Deaf Or Do You Have Serious Difficulty Hearing? No Information not available 04/24/2023 What Type Of Diet Are You Following? REGULAR Information n ot available 04/24/2023 What Is The Highest Grade Or Level Of School You Have Completed Or The Highest Degree You Have Received? [id number] Information not available 04/24/2023 Are There Any Guns Present In Your Home? No Information not available 04/24/2023 Do You Use Protection During Sex? No Information not available 04/24/2023 Do You Use Your Seat Belt Or Car Seat Routinely? Yes Information not available 04/24/2023 Do You Have Smoke And Carbon Monoxide Detectors In Your Home? Yes Information not available 04/24/2023 How Much Tobacco Do You Smoke? No Information not available 04/24/2023 Do You Use Sunscreen Routinely? Yes Information not available 04/24/2023 Have You Used IV Drugs? No Information not available 04/24/2023 Sex: Female Functional Status Question Answer Note LastModified by Organizat ion Details LastModified Time Do you use any illicit or recreational drugs? No Information not available 04/24/2023 What is your level of alcohol consumption? Occasional Information not available 04/24/2023 Are you able to walk? 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 Occasional Information not available 04/24/2023 Mental Status Question Answer Note LastModified by Organization D etails LastModified Time Do you feel stressed (tense, restless, nervous, or anxious, or unable to sleep at night)? [id number] [email or web address] Information not available 08/15/2024 Family History Relationship Description Onset Age of this Age Resolved Age Notes LastModified by Organization Details LastModified Time Maternal Grandmother Disorder of thyroid gland Not available 2023 15:53:32 Maternal Grandmother Heart disease Not available 2023 15:53:32 Maternal Grandmother Diabetes mellitus Not available 2023 15:53:32 Sister Asthma Not available 0 04/24/2023 15:53:32 Paternal Grandfather Malignant tumor of colon Not available 2023 15:53:32 Father Asthma Not available 0 04/24/2023 15:53:32 Father Depressive disorder Not available 2023 15:53:32 Father Diabetes mellitus Not available 2023 15:53:32 Medical History Condition Response Heart Problems Y Other Y Gynecological History Statement/Question Response Abnormal Pap N Flow Light Date of LMP 07/30/2024 N On BCP's at Conception? N STIs/STDs Y Was last menstrual period normal Y HPV Vaccine N Duration of Flow (days) 5 Current Control Method IUD Age at First Child 22 Date of control 09/27/2023 Are cycles usually normal N Sexually Active? Y N/A Menses Monthly Y Age of first menstrual cycle 13 Date of Last Pap Smear 04/26/2023 Sexual Problems? N LMP Definite Desired Control Method IUD N Obstetrics History GPAL:G 2 P 0 0 0 2 Type Value Living 2 Total 2 Past Encounters Encounter ID Performer Location Encounter Start Date Encounter Closed Date Diagnosis/Indication Diagnosis SNOMED-CT Code Diagnosis ICD10 Code Diagnosis Note [id number] LIANG Foster [address] [address] 04/24/2023 15:45:22 04/26/2023 12:56:43 Lesion of vulva 300824150 N90.89 cx collectedr x for bactrim coursevulv ar care guidelines discussedp recautions reviewed Contracept ion care management 694412037 Z30.9 detailed health hx obtained and reviewed todayall BC options discussedi nt in Mirena IUD - r/b/a reviewedif desires return for nexplanon removal with IUD insertwill also need WWEBP precaution s discussed - no symptoms - encouraged to f/u with PCP Time spent in visit is a total of 30 mins with at least 50% of visit consisting of counseling and review of plan of care. Furuncle of vulva 916855 006 N76.4 [id number] Sondra Ford ADRIA [place] [address] [address] 04/26/2023 16:04:53 04/26/2023 16:53:53 Gynecologic examination 77779600 Z01.419 Z11.51 WWEpap updateddec lined STI screenrout ine labs/PCPBP precaution s reviewed- f/u with PCP Take Calcium with Vitamin D daily if not receiving in daily diet.It is strongly advised to have an annual flu shot and up can obtain at most pharmacies . If you have not had a TDap shot in the last 10 years you should obtain one as well. Discussed with patient & provided with informatio n regarding Gardisil vaccine to prevent the 4 strains for HPV that cause cervical cancer if under age 26.Encoura ge safe sexual practices, to use condoms and limit partners if not already in a monogamous relationsh ip.Do monthly self breast exams. Engage in daily exercise of low impact aerobic exercise 45-60 minutes 4-5 times weekly. Avoid tobacco and illicit drugs. This lifestyle behavior pattern will lead to less health conditions and longer life span. If BMI greater than 25 dietary consult advised. Patient received above instructio ns, and questions have been answered. If you have any questions please call or respond to this email. Patient was made aware of the patient portal and may obtain a paper copy of today's plan if desired. Contracept ion care management 762810100 Z30.9 RTC for nexplanon removal with Mirena IUD insertionr /b/a reviewed [id number] RUSS HURTADO MD [place] [address] [address] 10/23/2023 10:46:54 10/23/2023 23:11:37 [id number] RUSS HURTADO MD [place] [address],[facility] [place] [address] 10/26/2023 11:09:17 10/26/2023 12:08:34 Removal of intrauterine contraceptive device 2703821905 Z30.46 - Nexplanon removed without issue Insertion of intrauterine contraceptive device 80429906 Z30.430 - IUD inserted without issue- patient to return for string check in 1 month- Due for removal 09/2031 [id number] RUSS HURTADO MD [place] [address],[facility] [place] [address] 08/15/2024 09:28:33 08/15/2024 10:16:09 Irregular periods 17511452 N92.6 - still having q2 week bleeding since IUD placement- ddx: thin endometriu m 2/2 Nexplanon then IUD placement vs irregular bleeding with IUD- will try estradiol course- patient to call if bleeding still irregular in 1 month Lump in up per outer quadrant of right breast [id number] 03849 N63.11 - present for a few months- tender to palpation, mobile- 2cm mass palpated on exam- diagnostic mammo ordered Gynecologi c examination 16081774 Z01.419 Well woman care- Cervical cancer screening: Pap smear not indicated (next 2028)- Breast cancer screening: mammogram ordered- Colon cancer screening: does not qualify- HPV immunizati on: has not received- STD testing: collected, declined blood testing- hereditary cancer screening: does not qualify for testing Venereal d isease screening 551688421 Z11.3 - vaginitis swab collected Health Concerns Section Related Observation LastModified by Organization Detai ls LastModified Time None Recorded Concern Status LastModified by Organization Details LastModified Time None Recorded Advance Directives Directive N: Payers Insurance Date Sequence Insurance Name Policy Number Policy [place] Covered Member ID [place] Member ID Guarantor Name 08/14/2024 1 [employer] (PPO) [id number] Lina Esparza [id number] Lina Esparza 08/14/2024 1 [place] Lina Esparza [id number] Lina Esparza 08/19/2024 1 [facility] (PPO) [id number] Lina Esparza [id number] Lina Esparza 08/14/2024 1 [place] [id number] Lina Esparza [id number] Lina Esparza Notes Date Note Type Note Provider Name and Address Organization Details Recorded Time 04/24/2023 text/html 37yo [id number] for evaluation of vulvar lesion and to discuss BCcurrently has nexplanon - inserted ince nexplanon insertion periods very irregular - wants to discuss other optionshas had a bump located on right side of perineum for the past 1 month. Sometimes will pop and ooze clear fluid.last pap 2021 - normal, h/o abnormal in 2019 - no procedures required per ptneg pelvic painneg n/v/fneg flu-like symptomsneg discharge/odors/itc LIANG Henry [address], [place], [place], [id number], [facility] 04/26/2023 10:10:51 04/26/2023 text/html Annual GYNReport ed bypatient.Menstrual cycle:Normal menses Urinary symptoms:No hematuria; No incontinence Vulva:No genital lesion Vagina:Normal vaginal discharge Breast:No breast pain; No breast lump; No nipple discharge Current Contraception:Subde rmal contraceptive implant Sexual complaints:No sexual complaints; No pain during intercourse; Normal libido Menopausal Symptoms:No menopausal symptoms; Normal vaginal lubrication Psychological symptoms:No depression; No anxiety; No PMDD Preventive measures:Encourage self breast examination; Encourage regular exercise; Encourage no tobacco use; Encourage regular mammograms starting age 40Notes:last pap 2021 - normalh/o abnormal pap in 2019 - no procedures requiredstarted antibiotics for vulvar abscess 2 days ago, symptoms already improving - cx still pending nexplanon for BC, inserted 08/2020, has appt for removal and insertion of Mirena IUD instead LIANG Foster [address], [place], [address], [facility] 04/26/2023 16:49:41 10/23/2023 text/html Patient presents for IUD insertion. RUSS HURTADO MD [address], [place], [address], [facility] 10/23/2023 23:11:35 10/26/2023 text/html Patient presents for IUD insertion and Nexplanon removal. R/b/a discussed with patient. Trinity young, [facility] 10/26/2023 12:29:50 08/15/2024 text/html Presents today f or her annual well-woman exam. Denies abnormal vaginal discharge. She is sexually active and denies dyspareunia. She is using Mirena IUD for contraception, and she states that she is satisfied with this method. She also reports a right breast lump that she noticed a few months ago. It is painful to palpation. Having q2 week bleeding episodes since IUD insertion, irregular flow. RUSS HURTADO MD [address], [place], [address], [facility] 08/15/2024 10:12:40 OBGyn Episode Ob Episode Information Episode Created Date Number of Fetuses Patient Bloodtype Patient rh Status Prepregnancy Weight lbs Domestic Partner Domestic Partner Phone Father Name Director Automotive Status 04/24/19 24 1 CLOSED Fetus Data First Name Last Name Admitted to NICU Weight (g) Sex Living Outcome Pediatric Complications Fetus ID Race Codes Race Delivery Type 3742.13 4 M Full Term [id number] Vaginal Delivery Skyler Calculation Initial Skyler Date Initial Exam Date Initial Exam Provider Initial Ultrasound Date Last Menstrual Period Date Ultra Sound Weeks Gestation 0 Eighteen To Twenty Week Skyler Update Ultra Sound Date Fundal Height At Umbil Quickening Date Ultra Sound Latest Weeks Gestation Final Skyler Confirmed By Final Skyler Confirmed Date Final Skyler Date Ultra Sound Latest Days Gestation 0 0 Menstrual History Last Menstrual Date Menses Monthly On Bcp Conception Prior Menses Frequency Hcg Plus Date Menarche Onset Age Delivery Information Delivery Date Delivery Type Labor Anesthesia Weeks Gestation Incision Type Labor Labor Length Hrs Delivered By Post Complications Tubal Sterilization Discharge Date Comments 9 Discharge Information Feeding Method Contraceptive Method Maternal HG B and HCT Levels Ob Episode Information Episode Created Date Number of Fetuses Patient Bloodtype Patient rh Status Prepregnancy Weight lbs Domestic Partner Domestic Partner Phone Father Name Director Automotive Status 04/24/19 24 1 CLOSED Fetus Data First Name Last Name Admitted to NICU Weight (g) Sex Living Outcome Pediatric Complications Fetus ID Race Codes Race Delivery Type 3572.03 7 M Full Term [id number] Vaginal Delivery Skyler Calculation Initial Skyler Date Initial Exam Date Initial Exam Provider Initial Ultrasound Date Last Menstrual Period Date Ultra Sound Weeks Gestation 0 Eighteen To Twenty Week Skyler Update Ultra Sound Date Fundal Height At Umbil Quickening Date Ultra Sound Latest Weeks Gestation Final Skyler Confirmed By Final Skyler Confirmed Date Final Skyler Date Ultra Sound Latest Days Gestation 0 0 Menstrual History Last Menstrual Date Menses Monthly On Bcp Conception Prior Menses Frequency Hcg Plus Date Menarche Onset Age Delivery Information Delivery Date Delivery Type Labor Anesthesia Weeks Gestation Incision Type Labor Labor Length Hrs Delivered By Post Complications Tubal Sterilization Discharge Date Comments 4 Discharge Information Feeding Method Contraceptive Method Maternal HG B and HCT Levels
== END 2024-09-09 11:18 | disposition home or self-care (01) ==
PROVIDERS: PCP Family Medicine; Visit Provider Obstetrics & Gynecology
DX: N63.11 Unspecified lump in the right breast, upper outer quadrant (principal)
CPT/HCPCS: 76641; 77062; 77066; G0279

== ENCOUNTER 2024-11-19 15:26 | Emergency (ER) | payer OTHER, SELFPAY ==
[2024-11-19 16:01] VITALS: BP 128/82; PULSE 111; RESP 20; O2SAT 100
--- NOTE | 2024-11-19 16:17 | ED_ITS ---
HPI - General Adult General Chief complaint: Skin/Abscess/Foreign Body Stated complaint: cyst vs abcsess Time Seen by Provider: 11/19/24 16:03 Source: patient Mode of arrival: ambulatory History of Present Illness HPI narrative: 39-year-old with a history of ADHD, here with a complains of pain and swelling to the right side of her labia for last 3 days. She denies any fever or chills denies any vaginal discharge or bleeding. Onset (ago): day(s) (3) Location: genitals Severity: mild Related Data Allergies Allergy/AdvReac Type Severity Reaction Status Date / Time Penicillins Allergy Mild Hives / Verified 11/19/24 15:40 Red Face Review of Systems Review of Systems: All systems reviewed & are unremarkable except as noted in HPI and below Constitutional: Constitutional: Reports no additional constitutional complaints Eyes: Eyes: Reports no additional eye complaints ENT: Reports system reviewed and no additional complaints, except as documented Respiratory: Respiratory: Reports no additional respiratory complaints Gastrointestinal: Gastrointestinal: Reports no additional gastrointestinal complaints Genitourinary: Genitourinary: Reports as per HPI Musculoskeletal: Musculoskeletal: Reports no additional musculoskeletal complaints [facility] Past Medical History Medical History Vaginal yeast infection History of vaginal infection UTI (urinary tract infection) ADHD Surgical History Surgical History No pertinent past surgical history Family History Family History Father Hypertension Asthma Diabetes mellitus Depression Grandparent Asthma Diabetes mellitus Hypertension Carcinoma of colon Bladder cancer Heart failure Brain cancer Lung cancer Sibling Asthma Social History Social History Smoking packs per day: 0.25 Smoking cigarettes per day: 5.0 Years smoked: 7 Smoking pack-years: 1.75 Smoking status: Former smoker Alcohol intake: current Drinks per week: 10 Substance use: never Lack of Transportation: No Lack of Food: Often True Current Housing: I Have Housing Concerned About Future Housing: No Difficulty Paying Gas/Electric Bills: YES Difficulty Paying for Meds: YES Currently Unemployed: No Education: High School Diploma/GED Difficulty w/ Childcare or Family Care: No Gender identity (if verbalized by the patient): Female Exam Narrative: GENERAL: Well-appearing, well-nourished, and in no acute distress. HEAD: Normocephalic, atraumatic. EYES: PERRLA and EOMI. ENT: Nares clear, no rhinorrhea or epistaxis. Mucous membranes moist. NECK: Supple. CHEST: Clear to auscultation. No respiratory distress. HEART: Regular rate and rhythm. No murmur heard. Normal peripheral pulses. a small swelling present in the right side of labia , no obvious abscess EXTREMITIES: Normal range of motion. No edema. SKIN: Warm, dry, no rash. NEURO: No focal deficits. Alert and oriented x3. PSYCH: Normal mood and affect. Course Vital Signs Vital signs: Vital Signs Pulse Rate 111 H 11/19/24 16:01 Respiratory Rate 11/19/24 16:01 Blood Pressure 128/82 11/19/24 16:01 Pulse Oximetry 100 11/19/24 16:01 Oxygen Delivery Room Air 11/19/24 16:01 Pulse Rate 111 H 11/19/24 16:01 Respiratory Rate 11/19/24 16:01 Blood Pressure 128/82 11/19/24 16:01 Pulse Oximetry 100 11/19/24 16:01 Oxygen Delivery Room Air 11/19/24 16:01 Medical Decision Making Vital Signs Vital Signs: Vital Signs Pulse Rate 111 H 11/19/24 16:01 Respiratory Rate 11/19/24 16:01 Blood Pressure 128/82 11/19/24 16:01 Pulse Oximetry 100 11/19/24 16:01 Oxygen Delivery Room Air 11/19/24 16:01 Pulse Rate 111 H 11/19/24 16:01 Respiratory Rate 11/19/24 16:01 Blood Pressure 128/82 11/19/24 16:01 Pulse Oximetry 100 11/19/24 16:01 Oxygen Delivery Room Air 11/19/24 16:01 Discharge Plan Discharge Clinical Impression: Labial abscess Patient Disposition: Home Condition: Stable Instructions: Antibiotic Form, Abscess (ED) Additional Instructions: Take antibiotic as prescribed, warm compress to the area. 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 Patient Language: South Korean Prescriptions: New doxycycline hyclate 100 mg tablet 100 mg PO BID Qty: 14 0RF No Action terbinafine HCl 250 mg tablet 250 mg PO DAILY Qty: 45 1RF Zepbound 2.5 mg/0.5 mL pen injector 2.5 mg subcut WEEKLY Qty: 2 0RF Rx Instructions: for 4 weeks Wegovy 0.25 mg/0.5 mL pen injector 0.25 mg subcut WEEKLY Qty: 2 0RF Rx Instructions: administer weeks 1 through 4 of therapy valacyclovir 500 mg tablet 500 mg PO DAILY Qty: 90 1RF dextroamphetamine-amphetamine [Adderall] 20 mg tablet 20 mg PO DAILY Qty: 45 0RF Rx Instructions: Take 1 tablet po qam and 0.5 tablet in the afternoon Follow-up/Referrals: Merritt Brunner MD [Primary Care Provider, Family Practice] Time of Disposition: 16:20
== END 2024-11-19 16:33 | disposition home or self-care (01) ==
PROVIDERS: Emergency Provider Family Medicine; PCP Family Medicine
DX: N76.4 Abscess of vulva (principal); F90.9 Attention-deficit hyperactivity disorder, unspecified type; Z87.440 Personal history of urinary (tract) infections; Z87.891 Personal history of nicotine dependence
CPT/HCPCS: 99283

== ENCOUNTER 2024-11-19 22:13 | Emergency (ER) | payer OTHER, SELFPAY ==
[2024-11-19 22:15] VITALS: BP 142/106; PULSE 114; RESP 18; TEMP 36.7; O2SAT 100
[2024-11-19 23:22] VITALS: BP 135/67; PULSE 116; RESP 21; O2SAT 95
--- NOTE | 2024-11-19 23:41 | ED_ITS ---
HPI - Skin/Abscess/Foreign Bdy General Chief complaint: Skin/Abscess/Foreign Body Stated complaint: abcess to labia Time Seen by Provider: 11/19/24 23:12 History of Present Illness HPI narrative: Patient is a 39-year-old female who presents to the ER with complaints of a labial abscess. She reports she was seen in the ER earlier today and was placed on oral antibiotics. Patient reports the pain is unbearable and she feels as though the site has grown. She denies any abdominal pain, urinary symptoms, or recent fevers. Patient reports she has had 1 previous labial cyst but it ruptured on its own. She denies any medical history relevant to this ER visit. Related Data Allergies Allergy/AdvReac Type Severity Reaction Status Date / Time Penicillins Allergy Mild Hives / Verified 11/19/24 15:40 Red Face Review of Systems Review of Systems: All systems reviewed & are unremarkable except as noted in HPI and below PMFSH Past Medical History Medical History Vaginal yeast infection History of vaginal infection UTI (urinary tract infection) ADHD Surgical History Surgical History No pertinent past surgical history Family History Family History Father Hypertension Asthma Diabetes mellitus Depression Grandparent Asthma Diabetes mellitus Hypertension Carcinoma of colon Bladder cancer Heart failure Brain cancer Lung cancer Sibling Asthma Social History Social History Smoking packs per day: 0.25 Smoking cigarettes per day: 5.0 Years smoked: 7 Smoking pack-years: 1.75 Smoking status: Former smoker Alcohol intake: current Drinks per week: 10 Substance use: never Lack of Transportation: No Lack of Food: Often True Current Housing: I Have Housing Concerned About Future Housing: No Difficulty Paying Gas/Electric Bills: YES Difficulty Paying for Meds: YES Currently Unemployed: No Education: High School Diploma/GED Difficulty w/ Childcare or Family Care: No Gender identity (if verbalized by the patient): Female Exam Narrative: GENERAL: Well appearing, well-nourished, non-toxic, in no acute distress. HEAD: Normocephalic, atraumatic. NECK: Supple. No adenopathy, no masses. RESPIRATORY: Airway patent, respirations nonlabored. Clear to auscultation bilaterally, no rales, rhonchi, wheezing. CARDIOVASCULAR: Regular rate and rhythm without murmurs, rubs, or gallops. Peripheral pulses 2+ and equal bilaterally. ABDOMINAL: Soft, nontender, nondistended, no hepatosplenomegaly. Normoactive BS. MUSCULOSKELETAL: Moves all extremities. Strength/ROM intact without gross deformities. SKIN: Warm, dry, normal color. No rashes. + palpable right labial abscess approximately 2 cm x 1 cm, no purulence drainage or areas of induration NEURO: A&O X3. Speech clear. Cranial nerves II-XII intact. No ataxic movements. PSYCHIATRIC: Appropriate mood and affect. Normal interaction. Course Vital Signs Vital signs: Vital Signs Temperature 36.7 C 11/19/24 22:15 Pulse Rate 114 H 11/19/24 22:15 Respiratory Rate 18 11/19/24 22:15 Blood Pressure 142/106 H 11/19/24 22:15 Pulse Oximetry 100 11/19/24 22:15 Oxygen Delivery Room Air 11/19/24 22:15 Temperature 36.7 C 11/19/24 22:15 Pulse Rate 116 H 11/19/24 23:22 Respiratory Rate 21 H 11/19/24 23:22 Blood Pressure 135/67 11/19/24 23:22 Pulse Oximetry 95 11/19/24 23:22 Oxygen Delivery Room Air 11/19/24 22:15 Procedures Abscess I/D bartholin's gland: Date of Incision: 11/20/24 Time of Incision: 00:38 Side (if applicable): right Sedation/analgesia: none Local Anesthetic: lidocaine 1% and with epi Amount of anesthesia used (mL): 8 Technique: incised with #11 blade and probed loculations Amount of fluid expressed (mL): 6 Irrigation: Yes Packing used?: sebas drain I&D Results: Pus and Blood MDM - Skin/Abscess/Foreign Bdy MDM Narrative Medical decision making narrative: Patient is a 39-year-old female who presents to the ER with complaints of a labial abscess. She reports she was seen in the ER earlier today and was placed on oral antibiotics. Patient reports the pain is unbearable and she feels as though the site has grown. She denies any abdominal pain, urinary symptoms, or recent fevers. Patient reports she has had 1 previous labial cyst but it ruptured on its own. She denies any medical history relevant to this ER visit. Labs Ordered: UA, GC chlamydia, trichomoniasis Imaging Ordered: None necessary Medications Ordered: Ceftriaxone 500 mg IM, Flagyl 500 mg p.o., Toradol 60 mg IM, [place] p.o. Diagnosis: Bartholin cyst, abnormal vaginal discharge Verbal consent was obtained prior to procedure. The abscess was cleaned with Betadine and Lidocaine 1% with epi was used for anesthesia. The abscess was incised with an 11 blade. There was return of approximately 6 mL of thick purulent sanguineous drainage. Curved hemostats were used to break up loculations. The wound was irrigated with normal saline and packed with Iodoform gauze with a 2 tail remaining. Following a dressing was applied. Patient tolerated the procedure well. Patient Education/Shared MDM: Results of vaginal exam shared with patient. It was noted patient has a moderate amount of thick white vaginal discharge in addition to her Bartholin cyst. Patient opted for testing and treatment of STD while in the ER. She endorses improvement of pain symptoms following medication administration. Patient strongly advised to maintain hydration status upon discharge and follow-up with her OBGYN to ensure she is healing. She will be given antibiotics here in the ER and sent home with Flagyl. Patient should complete her previously prescribed dose of doxycycline also. It was advised patient removed her Sebsa drain in approximately 48 hours. Strict return precautions provided. Patient verbalized understanding and is in agreement with plan. Vital signs stable at time of discharge. All questions answered.: Differential Diagnosis Differential diagnosis: Likely abscess of skin or subcutaneous tissue, cellulitis and other (Bartholin Cyst, sexually transmitted disease) Discharge Plan Discharge Clinical Impression: White vaginal discharge, Bartholin gland cyst, Abscess of skin or subcutaneous tissue, At risk for sexually transmitted disease due to unprotected sex Patient Disposition: Home Condition: Stable Instructions: Antibiotic Form, Bartholin Cyst (ED) Additional Instructions: Please return to the ER with any worsening symptoms. Follow-up with primary care provider to ensure you are he. Take all medications as prescribed, including regularly scheduled medications. Please complete your full doses of antibiotics. Patient Language: Montenegrin Prescriptions: New metronidazole 500 mg tablet 500 mg PO BID Qty: 14 0RF No Action terbinafine HCl 250 mg tablet 250 mg PO DAILY Qty: 45 1RF Zepbound 2.5 mg/0.5 mL pen injector 2.5 mg subcut WEEKLY Qty: 2 0RF Rx Instructions: for 4 weeks Wegovy 0.25 mg/0.5 mL pen injector 0.25 mg subcut WEEKLY Qty: 2 0RF Rx Instructions: administer weeks 1 through 4 of therapy doxycycline hyclate 100 mg tablet 100 mg PO BID Qty: 14 0RF valacyclovir 500 mg tablet 500 mg PO DAILY Qty: 90 1RF dextroamphetamine-amphetamine [Adderall] 20 mg tablet 20 mg PO DAILY Qty: 45 0RF Rx Instructions: Take 1 tablet po qam and 0.5 tablet in the afternoon Follow-up/Referrals: Merritt Brunner MD [Primary Care Provider, Family Practice] Stand Alone Forms: Work/School Release IP Time of Disposition: 00:49
[2024-11-19] MEDS: HYDROcodone/acetaminophen (*CRX) 5-325 MG TABLET 1 TAB PO (23:50)
[2024-11-19] MEDS: KETOROLAC (*BKC) 60 MG/2 ML VIAL IM (23:51)
[2024-11-20] MEDS: cefTRIAXone 1 GM VIAL IM (01:21)
[2024-11-20] MEDS: LIDOCAINE 1% LOCAL INJ 10 ML VIAL (01:21)
[2024-11-20 01:35] VITALS: BP 130/63; PULSE 98; RESP 17; O2SAT 98
[2024-11-20 01:36] VITALS: BP 130/63; PULSE 98; RESP 17; O2SAT 98
[2024-11-20 01:44] LABS: Add Urine Microscopic? YES; Appearance Urine Cloudy (Clear); Glucose Urine UA Negative (Negative); Leukocyte Esterase Ur 2+ LEU/UL (Negative); Need Manual Microscopic Reviewed; Nitrate Urine Negative (Negative); Non Pathogenic Casts 0-2; Specific Grav Ur 1.023 (1.001-1.035)
[2024-11-20 02:04] LABS: Trichomonas Vag PCR NOT DETECTED (NOT DETECTE)
== END 2024-11-20 01:40 | disposition home or self-care (01) ==
PROVIDERS: Emergency Provider Registered Nurse; PCP Family Medicine
DX: N75.0 Cyst of Bartholin's gland (principal); N89.8 Other specified noninflammatory disorders of vagina; Z72.51 High risk heterosexual behavior; F90.9 Attention-deficit hyperactivity disorder, unspecified type; Z87.440 Personal history of urinary (tract) infections; Z87.891 Personal history of nicotine dependence; Z79.899 Other long term (current) drug therapy
CPT/HCPCS: 56420; 81001; 87491; 87591; 87661; 96372; 99284; A9270; J0696; J1885; J2003